=== PATIENT | male | born 1955 | race Caucasian/White ===

== ENCOUNTER 2017-11-12 14:50 | Emergency (ER) | payer MEDICARE ==
--- NOTE | 2017-11-12 16:32 | ER Document Report ---
ED Medical Screen (RME) - General Chief Complaint: Weakness Stated Complaint: SHORTNESS OF BREATH Time Seen by Provider: 11/12/17 16:31 Notes: Patient states she is brought to the hospital by his sister because he is getting very weak and having frequent falls. He states that his sister is afraid she will not be able to lift him. He states that his sister is in the waiting room. However she could not be located. Patient states he has some type of congenital muscle problem but is not sure what the name of it is. He states that also approximately 2 years ago he had a soft tissue cancer removed from his neck. This required radiation. He states subsequent tests have shown that he is cancer free. TRAVEL OUTSIDE OF THE [place] IN LAST 30 DAYS: No - Related Data Allergies/Adverse Reactions: No Known Allergies Allergy (Verified 11/12/17 14:52) Past Medical History - Social History Chew tobacco use (# tins/day): No Frequency of alcohol use: None Drug Abuse: None Renal/ Medical History: Denies: Hx Peritoneal Dialysis Musculoskeltal Medical History: Reports Hx Muscular Dystrophy Psychiatric Medical History: Denies: Hx Depression Physical Exam - Vital signs Vitals: Temp Pulse Resp BP Pulse Ox 97.8 F 91 18 133/87 H 95 11/12/17 15:21 11/12/17 15:21 11/12/17 15:21 11/12/17 15:21 11/12/17 15:21 Course - Vital Signs Vital signs: Temp Pulse Resp BP Pulse Ox 97.8 F 91 18 133/87 H 95 11/12/17 15:21 11/12/17 15:21 11/12/17 15:21 11/12/17 15:21 11/12/17 15:21
[2017-11-12 16:53] LABS: ABSOLUTE BASOPHILS # (AUTO) 0.1 10^3/uL (0.0-0.2); ABSOLUTE EOSINOPHILS # (AUTO) 0.1 10^3/uL (0.0-0.6); ABSOLUTE LYMPHOCYTES (AUTO) 1.1 10^3/uL (0.5-4.7); ABSOLUTE MONOCYTES (AUTO) 0.9 10^3/uL (0.1-1.4); ABSOLUTE NEUT (AUTO) 5.7 10^3/uL (1.7-8.2); BASOPHILS % (AUTO) 1.1 % (0-2); EOSINOPHILS % (AUTO) 1.7 % (0-6); HEMATOCRIT 48.6 % (37.9-51.0); LYMPHOCYTES % (AUTO) 13.9 % (13-45); MEAN CORPUSCULAR HEMOGLOBIN 28.1 pg (27.0-33.4); MEAN CORPUSCULAR HGB CONC 32.9 g/dL (32.0-36.0); MEAN CORPUSCULAR VOLUME 86 fl (80-97); PLATELET COUNT 362 10^3/uL (150-450); RED BLOOD COUNT 5.68 10^6/uL (4.35-5.55); RED CELL DISTRIBUTION WIDTH 15.3 % (11.5-14.0); SEGMENTED NEUTROPHILS % (AUTO) 72.3 % (42-78); TOTAL CELLS COUNTED % (AUTO) 100 %; WHITE BLOOD COUNT 7.9 10^3/uL (4.0-10.5)
[2017-11-12 17:08] LABS: ALANINE AMINOTRANSFERASE 45 U/L (21-72); ALBUMIN 4.1 g/dL (3.5-5.0); ALKALINE PHOSPHATASE 108 U/L (38-126); ANION GAP 11 (5-19); ASPARTATE AMINO TRANSFERASE 24 U/L (17-59); BILIRUBIN,DIRECT 0.2 mg/dL (0.0-0.4); BILIRUBIN,TOTAL 0.4 mg/dL (0.2-1.3); BLOOD UREA NITROGEN 17 mg/dL (7-20); CALCIUM 9.7 mg/dL (8.4-10.2); CARBON DIOXIDE 28 mmol/L (22-30); CHLORIDE 102 mmol/L (98-107); CREATINE KINASE 71 U/L (55-170); GLUCOSE 109 mg/dL (75-110); POTASSIUM 4.6 mmol/L (3.6-5.0); SODIUM 140.7 mmol/L (137-145); TOTAL PROTEIN 6.6 g/dL (6.3-8.2)
--- NOTE | 2017-11-12 17:15 | ER Document Report ---
ED General - General Chief Complaint: Weakness Stated Complaint: weakness Time Seen by Provider: 11/12/17 16:31 Mode of Arrival: Ambulatory Information source: Patient TRAVEL OUTSIDE OF THE [place] IN LAST 30 DAYS: No - HPI Notes: 62-year-old male with a history of B-cell lymphoma who is in remission for the last 2 years, a form of muscular dystrophy presents with family for complaints of chronic weakness that has been becoming worse over the last couple years. Patient lives with sister at home and states that he has been having trouble getting out of bed, going to the bathroom with using his walker. Sister states that she is on able to completely take care of him. Patient does not have a primary care provider. Does not see any medical providers since he was considered cancer free 2 years ago. Patient had a PET scan done in 2016 which was negative for any cancer. Sister and patient both verbalized that they are frustrated because they feel that he needs assisted living care, but they are unsure of how to go about doing this. Denies fevers, chills, chest pain, palpitations, shortness of breath, dyspnea, nausea, vomiting, diarrhea, abdominal pain, hematuria,blurred vision, double vision, loss of vision, speech changes, LH, dizziness, syncope, headaches, wheezing, ST, URI, neck pain, weakness, bowel or bladder dysfunction, saddle anesthesia, numbness or tingling in bilateral upper or lower extremities equally, muscle paralysis, weakness in bilateral upper or lower extremities equally or rash. Denies IV drug use. - Related Data Allergies/Adverse Reactions: No Known Allergies Allergy (Verified 11/12/17 14:52) Past Medical History - Social History Smoking Status: Former Smoker Chew tobacco use (# tins/day): No Frequency of alcohol use: None Drug Abuse: None Family History: Reviewed & Not Pertinent Patient has suicidal ideation: No Patient has homicidal ideation: No Renal/ Medical History: Denies: Hx Peritoneal Dialysis Musculoskeltal Medical History: Reports Hx Muscular Dystrophy Psychiatric Medical History: Denies: Hx Depression Review of Systems - Review of Systems Notes: REVIEW OF SYSTEMS: CONSTITUTIONAL : Denies fever, chills, or sweats. Denies recent illness. EENT: Denies eye, ear, throat, or mouth pain or symptoms. Denies nasal or sinus congestion or discharge. Denies throat, tongue, or mouth swelling or difficulty swallowing. CARDIOVASCULAR: Denies chest pain. Denies palpitations or racing or irregular heart beat. Denies ankle edema. RESPIRATORY: Denies cough, cold, or chest congestion. Denies shortness of breath, difficulty breathing, or wheezing. GASTROINTESTINAL: Denies abdominal pain or distention. Denies nausea, vomiting , or diarrhea. Denies blood in vomitus, stools, or per rectum. Denies black, tarry stools. Denies constipation. GENITOURINARY: Denies difficulty urinating, painful urination, burning, frequency, blood in urine, or discharge. MUSCULOSKELETAL: Denies back or neck pain or stiffness. Denies joint pain or swelling. SKIN: Denies rash, lesions or sores. HEMATOLOGIC : Denies easy bruising or bleeding. LYMPHATIC: Denies swollen, enlarged glands. NEUROLOGICAL: Denies confusion or altered mental status. Denies passing out or loss of consciousness. Denies dizziness or lightheadedness. Denies headache. Denies weakness or paralysis or loss of use of either side. Denies problems with gait or speech. Denies sensory loss, numbness, or tingling. Denies seizures. PSYCHIATRIC: Denies anxiety or stress. Denies depression, suicidal ideation, or homicidal ideation. ALL OTHER SYSTEMS REVIEWED AND NEGATIVE. Dictation was performed using [employer] voice recognition software PHYSICAL EXAMINATION: GENERAL: well appearing well-nourished and in no acute distress. HEAD: Atraumatic, normocephalic. EYES: Pupils equal round and reactive to light, extraocular movements intact, sclera anicteric, conjunctiva are normal. ENT: Nares patent, oropharynx clear without exudates. Moist mucous membranes. NECK: Normal range of motion, supple without lymphadenopathy LUNGS: Breath sounds clear to auscultation bilaterally and equal. No wheezes rales or rhonchi. HEART: Regular rate and rhythm without murmurs ABDOMEN: Soft, nontender, nondistended abdomen. No guarding, no rebound. No masses appreciated. Musculoskeletal: Normal range of motion, no pitting or edema. No cyanosis. NEUROLOGICAL: Cranial nerves grossly intact. Normal speech, normal gait. Normal sensory, motor exams. negative straight leg test. Normal hip rotation. DTR +2 in BLE equally. Strength 5 out of 5 both distally and proximally to bilateral lower extremities normal motor and sensory function in BLE equally. Distal pulses + 2 BLE equally. Noted paraspinal tenderness near L2 and L3. No spinal tenderness. No CVA tenderness bilaterally. Femoral pulses + 2 bilaterally and equally. No abrasions, scars, lacerations, ecchymosis of any recent trauma. normal gait. PSYCH: Normal mood, normal affect. SKIN: Warm, Dry, normal turgor, no rashes or lesions noted. Physical Exam - Vital signs Vitals: Temp Pulse Resp BP Pulse Ox 97.8 F 91 18 133/87 H 95 11/12/17 15:21 11/12/17 15:21 11/12/17 15:21 11/12/17 15:21 11/12/17 15:21 Course - Re-evaluation Re-evalutation: Discussed the results of thelabs/radiology as well as the diagnosis at great length. CBC unremarkable for any leukocytosis or anemia, CMP negative for any electrolyte disturbances, renal or liver dysfunction. Patient is not having any focal neurological deficit. Discussed with patient as well as family that patient has been having these progressive symptoms throughout the years and there is no new findings with patient's muscular dystrophy that required admission at this time. Discussed with patient that outreach and education social worker come in and coordinate a plan of care to have patient receive outpatient assisted nursing services. Advised patient that he absolutely needs to follow-up with primary care provider to get referral to a neurologist as well as asset protection specialist. Patient verbalized an understanding of this care as well as his family. quarry extraction worker came in and did develop a plan of care for patient and family. Patient given Dr. Dominguez he is emergency services professional for medical today. This doctors also the doctor for the sister and sister was very agreeable with that. All questions and concerns answered by this provider. Advised patient to return to the emergency room if but not limited to fevers, chills, chest pain, palpitations, shortness of breath, dyspnea, nausea, vomiting, diarrhea, abdominal pain, hematuria,blurred vision, double vision, loss of vision, speech changes, LH, dizziness, syncope, headaches, wheezing, ST, URI, neck pain, weakness, bowel or bladder dysfunction, saddle anesthesia, numbness or tingling in bilateral upper or lower extremities equally, muscle paralysis, weakness in bilateral upper or lower extremities equally or rash. Denies IV drug use. Discussed the need to return to the ER for any new or worsening sx. Patient understands to take the Rx as directed. All questions answered. Patient comfortable with the decision to go home. After performing a Medical Screening Examination, I estimate there is LOW risk for EXPANDING OR RUPTURED ABDOMINAL AORTIC ANEURYSM, CAUDA EQUINA SYNDROME, EPIDURAL MASS ABSCESS OR LESION(S), OSTEOMYELITIS,PERSONAL HISTORY OF CANCER, IMMUNOSUPPERSSSION, HISTORY OF IV DRUG USE, FRACTURE, CORD COMPERSSION, CANCER, RETROPERITONEAL BLEED, SPINAL EPIDURAL HEMATOMA, or HERNIATED DISK CAUSING SEVERE SPINAL STENOSIS, thus I consider the discharge disposition reasonable. I have reevaluated this patient multiple times and no significant life threatening changes are noted. The patient and I have discussed the diagnosis and risks, and we agree with discharging home and close follow-up. We also discussed returning to the Emergency Department immediately if new or worsening symptoms occur with the understanding that symptoms and presentations can change. We have discussed the symptoms which are most concerning (e.g., saddle anesthesia, urinary or bowel incontinence or retention, changing or worsening pain) that necessitate immediate return. After performing a Medical Screening Examination, I estimate there is LOW risk for RUPTURED ESOPHAGUS, PNEUMOTHORAX, PULMONARY EMBOLISM, ACUTE CORONARY SYNDROME, OR THORACIC AORTIC DISSECTION, thus I consider the discharge disposition reasonable. I have reevaluated this patient multiple times and no significant life threatening changes are noted. The patient and I have discussed the diagnosis and risks, and we agree with discharging home with close follow-up. We also discussed returning to the Emergency Department immediately if new or worsening symptoms occur. We have discussed the symptoms which are most concerning (e.g., bloody sputum, worsening pain or shortness of breath) that necessitate immediate return. - Vital Signs Vital signs: Temp Pulse Resp BP Pulse Ox 97.5 F 73 18 151/94 H 94 11/12/17 19:22 11/12/17 19:22 11/12/17 19:21 11/12/17 19:22 11/12/17 19:22 - Laboratory Result Diagrams: 11/12/17 16:40 11/12/17 16:40 Laboratory results interpreted by me: 11/12/17 11/12/17 16:40 18:15 RBC 5.68 H RDW 15.3 H Urine Ketones TRACE H Discharge - Discharge Clinical Impression: Muscular dystrophy, Chronic weakness Condition: Good Disposition: HOME, SELF-CARE Additional Instructions: Weakness We did not find a definite cause for your weakness. This may require further medical tests. Weakness can be caused by infection, physical exhaustion , rapid weight loss, dehydration, or medicine side effects. Diseases of the muscles, heart, nerves, and blood vessels can make you weak. Sometimes the problem is simply depression or lack of exercise. You should get plenty of rest. Unless the doctor tells you otherwise, it's usually best to add short periods of regular mild exercise. Eat a nutritious diet with multiple small, low-sugar meals. If symptoms continue, additional medical evaluation will be necessary. Be sure to follow up as instructed. If you become very dizzy, nauseated, or feel like you're going to faint, lie down right away. Wait until the symptoms have passed before you get up again. Stand up slowly. Call the doctor or return if you develop chest pain, abdominal pain, severe headache, irregular heartbeat or very fast pulse, confusion, vision problems, fever, muscular pain, or any other new symptom. If any but not limited to fevers, chills, chest pain,palpitations, shortness of breath, dyspnea, nausea, vomiting, diarrhea, abdominal pain, hematuria, blurred vision, double vision, loss of vision, speech changes, LH, dizziness, syncope, headaches, wheezing, ST, URI, neck pain, weakness, bowel or bladder dysfunction, saddle anesthesia, numbness or tingling in bilateral upper or lower extremities equally, muscle paralysis, weakness in bilateral upper or lower extremities equally or rash develop, return to the emergency room immediately or call 911. Follow-up with primary care provider tomorrow, Jeromy, outreach and education social worker, will set up for you palliative screening tomorrow and also has urge you to find a primary care provider. Return immediately for any new or worsening symptoms. Follow up with primary care provider, call tomorrow to make followup appointment. Referrals: TRISTIAN DOMINGUEZ DO [NO LOCAL MD] - Follow up tomorrow
[2017-11-12 18:45] LABS: APPEARANCE,URINE CLEAR; BILIRUBIN,URINE NEGATIVE (NEGATIVE); COLOR,URINE YELLOW; GLUCOSE, URINE NEGATIVE (NEGATIVE); KETONES,URINE TRACE mg/dL (NEGATIVE); LEUKOCYTE ESTERASE,URINE NEGATIVE (NEGATIVE); NITRITE,URINE NEGATIVE (NEGATIVE); PROTEIN,URINE NEGATIVE (NEGATIVE); URINE SPECIFIC GRAVITY 1.031; UROBILINOGEN,URINE NEGATIVE mg/dL (<2.0)
[2017-11-12 19:45] VITALS: BP 151/94
== END 2017-11-12 19:22 | disposition home or self-care (01) ==
LOC: ER 14:50
DX: G71.0 Muscular dystrophy (principal); Z85.72 Personal history of non-Hodgkin lymphomas; Z87.891 Personal history of nicotine dependence
CPT/HCPCS: 36415; 80053; 81001; 82550; 83735; 85025; 99285

== ENCOUNTER 2020-07-16 15:28 | Emergency (ER) | payer MEDICARE ==
--- NOTE | 2020-07-16 16:14 | ER Document Report ---
ED General - General Chief Complaint: Fall Stated Complaint: DIFFICULTY WALKING Time Seen by Provider: 07/16/20 16:08 TRAVEL OUTSIDE OF THE [place] IN LAST 30 DAYS: No - HPI Notes: 65-year-old male presents after multiple falls at home. 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 He is generally weak and typically uses his arms at all times to help ambulate, he does use a Rollator. Over the past several months, patient states he has had increasing weakness and really is no longer able to care for himself. He states that he is here looking for a place to go to that will be able to take care of him. He lives with his sisters who are also unable to take care of him. He really does not leave the house. Over the past 3 days he has had falls. Patient states that he will feel himself starting to fall, he will be able to brace himself and typically falls over his Rollator, that is why he has some new bruises to his arms. He states that also he did have a fall where he hit his butt against the oxygen tanks that are in his room, the oxygen tanks belonged to his [id number] who has cancer. Patient denies pain anywhere. He states he has not hit his head at any time. He states that he does have some shortness of breath when he is straining to get up off the floor, he denies shortness of breath or chest pain currently. His sister at bedside notes that his legs seem to swell. He has not seen a doctor in over 5 years. He states last time he saw Dr. Cortez for a giant lump on the side of his neck that was cancer which resolved immediately after treatment. He does not currently take any medication. He is does also note that when he attempts to urinate he does have a hard time initiating the stream and only a small amount of urine will come out. - Related Data Allergies/Adverse Reactions: No Known Allergies Allergy (Verified 11/12/17 14:52) Past Medical History - General Information source: Patient, Relative - Social History Smoking Status: Never Smoker Frequency of alcohol use: Occasional Family History: Reviewed & Not Pertinent Renal/ Medical History: Denies: Hx Peritoneal Dialysis Musculoskeletal Medical History: Reports Hx Muscular Dystrophy Psychiatric Medical History: Denies: Hx Depression Review of Systems - Review of Systems Constitutional: denies: Fever EENT: No symptoms reported Cardiovascular: denies: Chest pain Respiratory: denies: Short of breath Gastrointestinal: denies: Abdominal pain Genitourinary: See HPI Male Genitourinary: denies: Testicular pain Musculoskeletal: denies: Back pain, Muscle pain, Neck pain Skin: Other - Bruises Hematologic/Lymphatic: No symptoms reported Neurological/Psychological: denies: Headaches Physical Exam - Vital signs Vitals: Temp Pulse Resp BP Pulse Ox 97.9 F 79 18 132/78 H 93 07/16/20 15:40 07/16/20 15:40 07/16/20 15:40 07/16/20 15:40 07/16/20 15:40 - General General appearance: Appears well, Alert In distress: None - HEENT Head: Normocephalic, Atraumatic Extraocular movements intact: Yes Pupils: PERRL Mucous membranes: Moist Neck: Supple - Respiratory Chest status: Nontender Breath sounds: Normal - Cardiovascular Rhythm: Regular Heart sounds: Normal auscultation Pulses: Normal: Dorsalis pedis Normal capillary refill: Yes - Abdominal Inspection: Obese Bowel sounds: Normal Tenderness: Nontender Notes: Linear ecchymosis to left upper quadrant - Rectal Notes: Bruising to left inferior buttock - Back Back: No: Deformity/step-off, CVA tenderness, Vertebra tenderness - Extremities Notes: Appears to have some atrophy to his lower extremities, he is able to move his legs in bed. Normal range of motion of upper extremities - Neurological Neuro grossly intact: Yes Cognition: Normal Orientation: AAOx4 Notes: Symmetric decreased strength to lower extremities, sensation intact. Strength 5/5 upper extremities. Coordination intact. Cranial nerves II through XII grossly intact - Psychological Associated symptoms: Normal affect - Skin Skin Temperature: Warm Skin Color: Ecchymosis - Scattered to upper extremities Course - Re-evaluation Re-evalutation: 65-year-old male with neuromuscular disorder mainly affecting his lower extremities here for multiple falls and essentially asking to be placed in a care facility. On exam he is well-appearing, nontoxic, hemodynamically stable. Head NCAT, no midline spinal tenderness, no tenderness to extremities. He does have symmetrically decreased muscle weakness to his lower extremities, which he reports is his baseline. Abdomen is soft and without focal area of tenderness. He has not seen a doctor in quite some time. We will start work-up to look for metabolic or electrolyte abnormality that could be attributing to his recent falls, though I suspect this is a long-term sequela of his known disease process. Check head CT for any evidence of a subacute stroke, including CT C- spine given his multiple falls. Does not have any rales on exam, however given the report of lower extremity edema will check BNP for any evidence of heart failure. Suspect he has some prostamegaly given his reported urinary symptoms, check UA to assure that no UTI is present. 07/16/20 18:31 No leukocytosis or left shift. No acute anemia. Sodium and potassium within normal limits. No anion gap. Mild low phosphorus, will replace oral. No elevation of LFTs. No elevation of BNP. Kidney function preserved. CT head is negative for hemorrhage, no evidence of acute stroke or areas of low density. CT C-spine is negative for fracture. Chest x-ray without consolidation, has likely large hiatal hernia. Lumbar x-ray without fracture. Have ordered a Covid swab for impending facility placement, patient does not currently exhibit any signs or symptoms to suggest Covid infection 07/16/20 21:00 No UTI Had a long discussion with patient's 2 sisters. They were both adamant that they are no one to care for patient and that he must stay in the emergency department. At this time patient does not currently have an admittable diagn osis. We had multiple discussions about the placement process, cannot guarantee a timeframe or even facility of their preference. They are very resistant to bringing him home and are demanding that he stay in the emergency department at least until Sunday. One of the sisters apparently has a contact at a facility near [facility]. 07/16/20 21:31 Again discussed with patient and his 2 sisters. Patient is refusing to go home, again his sisters are refusing to take him home. At this point in time, patient will be placed as a social hold status. - Vital Signs Vital signs: Temp Pulse Resp BP Pulse Ox 97.9 F 79 18 132/78 H 93 07/16/20 15:40 07/16/20 15:40 07/16/20 15:40 07/16/20 15:40 07/16/20 15:40 - Laboratory Result Diagrams: 07/16/20 16:50 07/16/20 16:50 Laboratory results interpreted by me: 07/16/20 07/16/20 16:50 16:50 RBC 5.56 H RDW 15.1 H Lymph % (Auto) 12.6 L Creatinine 0.49 L Phosphorus 2.3 L - Diagnostic Test Radiology reviewed: Image reviewed, Reports reviewed Discharge - Discharge Clinical Impression: Unable to care for self, Frequent falls, Muscular disorder Disposition: OTHER
--- NOTE | 2020-07-16 17:24 | RADIOLOGY REPORT (SQ) ---
EXAM DESCRIPTION: CT HEAD WITHOUT IMAGES COMPLETED DATE/TIME: 07/16/2020 5:14 pm REASON FOR STUDY: fall, eval head trauma COMPARISON: None. TECHNIQUE: Axial images acquired through the brain without intravenous contrast. Images reviewed wi th bone, brain and subdural windows. Additional sagittal and coronal reconstructions were generated. Images stored on PACS. All CT scanners at this facility use dose modulation, iterative reconstruction, and/or weight based d osing when appropriate to reduce radiation dose to as low as reasonably achievable (ALARA). [facility]: Dose Right [facility]: CareDose [facility]: Dose Right [facility]: Teradose 4D [facility]: Smart [employer] RADIATION DOSE: CT Rad equipment meets quality standard of care and radiation dose reduction techniq ues were employed. CTDIvol: 53.2 mGy. DLP: 1017 mGy-cm. mGy. LIMITATIONS: None. FINDINGS: VENTRICLES: Normal size and contour. CEREBRUM: No masses. No hemorrhage. No midline shift. No evidence for acute infarction. Normal gra y/white matter differentiation. No areas of low density in the white matter. CEREBELLUM: No masses. No hemorrhage. No alteration of density. No evidence for acute infarction. EXTRAAXIAL SPACES: No fluid collections. No masses. ORBITS AND GLOBE: No intra- or extraconal masses. Normal contour of globe without masses. CALVARIUM: No fracture. PARANASAL SINUSES: No fluid or mucosal thickening. SOFT TISSUES: No mass or hematoma. OTHER: No other significant finding. IMPRESSION: NORMAL BRAIN CT WITHOUT CONTRAST. EVIDENCE OF ACUTE STROKE: NO. COMMENT: Quality ID # [id number]: Final reports with documentation of one or more dose reduction techniques (e.g., Automated exposure control, adjustment of the mA and/or kV according to patient size, use of iterative reconstruction technique) TECHNICAL DOCUMENTATION: JOB ID: [id number] 2010 [employer]- All Rights Reserved Reading location - IP/workstation name: [email or web address]
--- NOTE | 2020-07-16 17:26 | RADIOLOGY REPORT (SQ) ---
EXAM DESCRIPTION: CT CERVICAL SPINE WITHOUT IMAGES COMPLETED DATE/TIME: 07/16/2020 5:14 pm REASON FOR STUDY: fall, eval spinetrauma COMPARISON: None. TECHNIQUE: Axial images acquired through the cervical spine without intravenous contrast. Images re viewed with lung, soft tissue and bone windows. Reconstructed coronal and sagittal MPR images review ed. Images stored on PACS. All CT scanners at this facility use dose modulation, iterative reconstruction, and/or weight based d osing when appropriate to reduce radiation dose to as low as reasonably achievable (ALARA). [facility]: Dose Right [facility]: CareDose [facility]: Dose Right [facility]: Teradose 4D [facility]: Smart [employer] RADIATION DOSE: CT Rad equipment meets quality standard of care and radiation dose reduction techniq ues were employed. CTDIvol: 22.0 mGy. DLP: 437 mGy-cm. mGy. LIMITATIONS: None. FINDINGS: ALIGNMENT: Anatomic. MINERALIZATION: Normal. VERTEBRAL BODIES: No fractures or dislocation. DISCS: There is disc narrowing from C3 to C7 with marginal osteophytes. FACETS, LATERAL MASSES, POSTERIOR ELEMENTS: Mild hypertrophic facet changes in the upper cervical spi ne. HARDWARE: None in the spine. VISUALIZED RIBS: No fractures. LUNG APICES AND SOFT TISSUES: No significant or acute findings. OTHER: No other significant finding. IMPRESSION: Degenerative disc disease and spondylosis. Mild facet arthropathy. TECHNICAL DOCUMENTATION: JOB ID: [id number] Quality ID # [id number]: Final reports with documentation of one or more dose reduction techniques (e.g., Au tomated exposure control, adjustment of the mA and/or kV according to patient size, use of iterative reconstruction technique) 2010 [employer]- All Rights Reserved Reading location - IP/workstation name: [email or web address]
[2020-07-16 17:38] LABS: ABSOLUTE EOSINOPHILS # (AUTO) 0.1 10^3/uL (0.0-0.6); ABSOLUTE MONOCYTES (AUTO) 0.9 10^3/uL (0.1-1.4); ABSOLUTE NEUT (AUTO) 5.8 10^3/uL (1.7-8.2); BASOPHILS % (AUTO) 0.4 % (0-2); EOSINOPHILS % (AUTO) 0.8 % (0-6); HEMATOCRIT 47.9 % (37.9-51.0); HEMOGLOBIN 16.1 g/dL (13.5-17.0); LYMPHOCYTES % (AUTO) 12.6 % (13-45); MEAN CORPUSCULAR HGB CONC 33.7 g/dL (32.0-36.0); MEAN CORPUSCULAR VOLUME 86 fl (80-97); MONOCYTES % (AUTO) 11.2 % (3-13); PLATELET COUNT 237 10^3/uL (150-450); RED BLOOD COUNT 5.56 10^6/uL (4.35-5.55); RED CELL DISTRIBUTION WIDTH 15.1 % (11.5-14.0); TOTAL CELLS COUNTED % (AUTO) 100 %; WHITE BLOOD COUNT 7.7 10^3/uL (4.0-10.5)
--- NOTE | 2020-07-16 17:39 | RADIOLOGY REPORT (SQ) ---
EXAM DESCRIPTION: CHEST SINGLE VIEW IMAGES COMPLETED DATE/TIME: 07/16/2020 5:24 pm REASON FOR STUDY: fall COMPARISON: 03/22/2015 EXAM PARAMETERS: NUMBER OF VIEWS: One view. TECHNIQUE: Single frontal radiographic view of the chest acquired. RADIATION DOSE: NA LIMITATIONS: None. FINDINGS: LUNGS AND PLEURA: No opacities, masses or pneumothorax. No pleural effusion. MEDIASTINUM AND HILAR STRUCTURES: Large retrocardiac mass. Likely large hiatal hernia. HEART AND VASCULAR STRUCTURES: Heart normal in size. Normal vasculature. BONES: No acute findings. HARDWARE: None in the chest. OTHER: No other significant finding. IMPRESSION: No acute pulmonary disease. Large retrocardiac mass which is likely a hiatal hernia. TECHNICAL DOCUMENTATION: JOB ID: [id number] 2010 [employer]- All Rights Reserved Reading location - IP/workstation name: [email or web address]
--- NOTE | 2020-07-16 17:41 | RADIOLOGY REPORT (SQ) ---
EXAM DESCRIPTION: L SPINE WHOLE IMAGES COMPLETED DATE/TIME: 07/16/2020 5:24 pm REASON FOR STUDY: fall, eval l spine trauma COMPARISON: None. NUMBER OF VIEWS: Five views including obliques. TECHNIQUE: AP, lateral, oblique, and sacral radiographic images acquired of the lumbar spine. LIMITATIONS: None. FINDINGS: MINERALIZATION: Osteopenia. SEGMENTATION: Normal. No transitional anatomy. ALIGNMENT: Normal. VERTEBRAE: Maintained height. No fracture or worrisome bone lesion. DISCS: The L5-S1 disc space is narrowed. POSTERIOR ELEMENTS: Pedicles and facets are intact. No pars defect or posterior arch defects. HARDWARE: None in the spine. PARASPINAL SOFT TISSUES: Normal. PELVIS: Intact as visualized. No fractures or worrisome bone lesions. SI joints intact. OTHER: No other significant finding. IMPRESSION: Mild degenerative disc disease. Osteopenia. No acute finding. TECHNICAL DOCUMENTATION: JOB ID: [id number] 2010 [employer]- All Rights Reserved Reading location - IP/workstation name: [email or web address]
[2020-07-16 18:01] LABS: ALBUMIN 3.8 g/dL (3.5-5.0); ALKALINE PHOSPHATASE 111 U/L (38-126); ANION GAP 7 (5-19); ASPARTATE AMINO TRANSFERASE 26 U/L (17-59); BILIRUBIN,DIRECT 0.1 mg/dL (0.0-0.4); BILIRUBIN,TOTAL 0.6 mg/dL (0.2-1.3); BLOOD UREA NITROGEN 14 mg/dL (7-20); CALCIUM 8.9 mg/dL (8.4-10.2); CARBON DIOXIDE 29 mmol/L (22-30); CHLORIDE 102 mmol/L (98-107); GLUCOSE 92 mg/dL (75-110); PHOSPHORUS 2.3 mg/dL (2.5-4.5); POTASSIUM 4.3 mmol/L (3.6-5.0); TOTAL PROTEIN 6.5 g/dL (6.3-8.2)
[2020-07-16 20:29] LABS: APPEARANCE,URINE SLIGHTLY-CLOUDY; BILIRUBIN,URINE NEGATIVE (NEGATIVE); COLOR,URINE YELLOW; GLUCOSE, URINE NEGATIVE (NEGATIVE); KETONES,URINE NEGATIVE (NEGATIVE); LEUKOCYTE ESTERASE,URINE NEGATIVE (NEGATIVE); NITRITE,URINE NEGATIVE (NEGATIVE); PROTEIN,URINE NEGATIVE (NEGATIVE); URINE SPECIFIC GRAVITY 1.026; UROBILINOGEN,URINE NEGATIVE mg/dL (<2.0)
--- NOTE | 2020-07-17 18:34 | ER Document Report ---
Doctor's Note Notes: 07/17/20 18:29 I was told earlier by the space planner that all arrangements have been made for the patient to return home and that the sister was aware and agreeable. I then read the discharge planning note which sounds like no arrangements have been made and the sister would not be at home, the patient went end up going home and being by himself tonight. There appears to be no definite arrangements to help with this patient's care when he returns home. I discussed this case with Dr. Jordan who saw him last night and she is equally concerned that this patient is not safe to go home until some definite arrangements have been made to ensure his safety. I informed the nurse of this and told him that the pa alejo would be remaining here at least until tomorrow and probably Sunday given how unreliable our experience is with setting up any sort of home health on a weekend.
--- NOTE | 2020-07-19 18:12 | ER Document Report ---
Doctor's Note Notes: 07/19/20 18:10 Patient seen just now. Patient is resting comfortably in the bed. He has just ate dinner states he has no complaints or problems at this time. States he would like to know what the plan is concerning discharge. I told him that we are currently still working on it. After discussion with his nurse she states that she was told by discharge planning that there are waiting on the Covid results and that patient has been swabbed. Discharge planning is still working on placement. Patient skin was warm and dry. Abdomen was nontender.
--- NOTE | 2020-07-20 19:18 | ER Document Report ---
Doctor's Note Notes: 07/20/20 19:18 Patient seen just now. Patient at this time is resting comfortably on his left side and sleeping. He was easily aroused. He tolerated dinner without problem. He specifically denies any concerns at this time and says that he is doing "fine".
--- NOTE | 2020-07-21 10:27 | ER Document Report ---
Doctor's Note Notes: 07/21/20 10:26 At this time patient is currently sitting in a chair resting comfortably. He has no complaints. He tolerated breakfast at this time without problem. Social work continues to work on placement of the patient.
[2020-07-21 15:27] VITALS: BP 137/83
== END 2020-07-21 15:33 | disposition other institution (70) ==
LOC: ER 15:28
DX: G71.00 Muscular dystrophy, unspecified (principal); R29.6 Repeated falls; R06.02 Shortness of breath; R39.89 Other symptoms and signs involving the genitourinary system; S30.0XXA Contusion of lower back and pelvis, initial encounter; S40.022A Contusion of left upper arm, initial encounter; S40.021A Contusion of right upper arm, initial encounter; S30.1XXA Contusion of abdominal wall, initial encounter; W19.XXXA Unspecified fall, initial encounter; M51.36 Other intervertebral disc degeneration, lumbar region; M85.88 Other specified disorders of bone density and structure, other site; M50.30 Other cervical disc degeneration, unspecified cervical region; M47.812 Spondylosis without myelopathy or radiculopathy, cervical region; Z20.828 Contact with and (suspected) exposure to other viral communicable diseases; Z75.1 Person awaiting admission to adequate facility elsewhere
CPT/HCPCS: 99285; 36415; 83735; 84100; 85025; 80053; 81001; 83880; 71045; 72110; 70450; 72125; U0003; C9803; 87635